=== PATIENT | female | born 1970 | race Caucasian/White ===

== ENCOUNTER → 2020-03-31 | Outpatient (CLI) | payer OTHER ==
[~2020-03-31] MED LIST: OMNIPAQUE 350 MG/ML, 100ML BOTTLE ONE
== END | disposition home or self-care (01) ==
LOC: CFH 12:49
PROVIDERS: ATTEND Family Medicine
DX: N20.0 Calculus of kidney (principal); Q63.0 Accessory kidney
CPT/HCPCS: 74177; Q9967